=== PATIENT | male | born 1935 | race Caucasian/White ===

== ENCOUNTER 2025-02-20 16:04 | Inpatient (IN) | payer MEDICARE, SELFPAY ==
[2025-02-20] VITALS (13 sets, daily range): BP systolic 90–173; BP diastolic 72–124
--- NOTE | 2025-02-20 15:57 | ITS.CL.PACE ---
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
Pacemaker Implant
Procedure Report:
PACEMAKER IMPLANT REPORT
Primary Care Physician: Dr. Nathan Devi
Primary Pharmaceutical Sales: Dr. Benedicto Peck
Date of Procedure: February 20, 2025
Procedure:
1: Dual chamber pacemaker implantation with fluoroscopic guidance
Indication/Diagnosis:
1: Non-reversible symptomatic bradycardia due to: third degree AV block.
History: The patient is an 89-year-old man who presented to the ER with fatigue and was found in third-degree AV block with a heart rate in the low 30s. He is referred for urgent pacemaker placement. Echocardiography performed in the ER showed
preserved LV systolic function with no major valvular heart disease.
Antibiotic: Ancef 2 g IV
Sedation: Conscious sedation as per anesthesia staff
Description of Procedure: After informed consent was obtained, 'time out' was called and confirmed, the patient was prepped and draped in a sterile fashion. Lidocaine with epinephrine was used for local anesthesia. Central venous access was
obtained via subclavian venopuncture after a venogram from the left arm confirmed subclavian patency. An incision was made along the left chest and a pre-pectoral pocket was formed. Using a Seldinger technique and peel-away sheaths, the pacing
leads were placed under fluoroscopic guidance. Once testing (see below) showed adequate and stable function, the leads were secured using the suture sleeves. The pocket was liberally irrigated with antibiotic solution. The leads were connected to
the generator header and the leads and generator were placed within the pocket. Fluoroscopy confirmed stable lead position. The pocket was closed in the typical fashion.
IMPLANTS:
Company: [employer] [id number], SN: [id number] left Pectoral
RA: [employer] LPA 1231/46, SN: [id number], RAA
RV: [employer] LPA 1231/52, SN: [id number], RV apical septum
DEVICE TESTING:
Sensing: RA 1.8 mV, RV [PACED] mV
Capture: RA 0.5 V@0.4ms, RV 0.75 V@0.4ms
Ohms: RA 510, RV 600
FINAL PROGRAMMING
Jordan Pacing: DDDR 60-120ppm
Complications: None.
Fluoroscopy Time (min): 6.2
Radiation Dose (mGy): 13.1
DAP (Gy.cm2): 1.7
CONCLUSIONS:
1: Successful implant of dual chamber permanent pacemaker
RECOMMENDATIONS:
1. Routine post-op care (tele, CXR, arm sling).
2. In-Office wound check within 7 days.
3. Office interrogation within 4 weeks.
Copy to: Dr. Nathan Devi
[2025-02-20] MEDS: IMODIUM 2 MG PO (20:23)
[2025-02-20] MEDS: AMBIEN 10 MG PO (21:50)
[2025-02-20] MEDS: ANCEF 5 IV (23:05)
--- NOTE | 2025-02-20 23:28 | PTCARENOTE ---
Pt showered self with CHG after clip done. Bilat groins noted with MASD. PA assessed pt and desenex powder applied to groins for tonight.
[2025-02-21 00:02] VITALS: BP 157/98
[2025-02-21 03:28] VITALS: BP 167/97
[2025-02-21 03:46] LABS: Hematocrit 31.6 % (39.0-52.0); Hemoglobin 11.3 g/dL (13.0-18.0); Mean Corp Hgb Conc. 35.8 g/dL (33.0-37.0); Mean Corpuscular Hgb 33.2 pg (27.0-31.0); Mean Corpuscular Volume 92.9 fL (80.0-94.0); Mean Platelet Volume 8.9 fL (7.4-10.4); Platelet Count 150 10^3/uL (130-400); Red Cell Dist. Width 11.9 % (11.5-14.5); White Blood Cell Count 8.8 10^3/uL (4.8-10.8)
[2025-02-21 04:12] LABS: Blood Urea Nitrogen 25 mg/dl (9-20); Calcium 9.4 mg/dl (8.4-10.2); Carbon Dioxide 21 mmol/L (22-30); Chloride 99 mmol/L (98-107); Estimated Creatinine Clearance 45 ml/min; Glucose 90 mg/dl (70-99); Potassium 4.1 mmol/L (3.5-5.1); Sodium 126 mmol/L (135-145); eGFR > 60.00
[2025-02-21] MEDS: SYNTHROID 150 MCG PO (04:36)
[2025-02-21 07:03] VITALS: BP 160/88
--- NOTE | 2025-02-21 08:30 | W.PN.CARDCBS ---
Addendum entered and electronically signed by Norman Li MD 02/21/25 10:30:
Patient seen and examined
Agree with SENIOR PRODUCT MANAGER note and assessment
Agree with SENIOR PRODUCT MANAGER plan
Examination:
Has difficulty with word finding
Oriented x 3 otherwise
Nonfocal neurologically
JVP 6
Cor regular
Appropriate atrial sensing, appropriate atrial pacing, appropriate ventricular pacing and sensing on telemetry
Chest x-ray reviewed with stable leads in the right atrial appendage and RV apex.
89 y/o, PMH of hypothyroid and BPH, presented to [facility] ER w/3 day history of progressive generalized weakness and lightheadedness, as well as difficulty with word finding. Initial EKG with 2nd deg HB w/3:1 AV conduction and RBBB. Neuro was consulted,
and CT head normal however CTA of head/neck with chronic fixed cerebral stenosis in R anterior MCA d/t severe prox M2 segment stenosis and atherosclerotic changes in bilat prox cervical ICAs. Transferred for PPM implant.
IMPRESSION:
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
RBBB
s/p DC PPM implant, 02/20/25
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
Mental status changes/confusion
TIA with expressive aphasia, improved
Hypothyroidism
BPH
GERD
Anemia
Acute on Chronic CKD3a, improved
Chronic Hyponatremia
PLAN:
S/P PPM implant
device site stable
CXR w/stable lead position, no pneumothorax
oob ambulating
limb restrictions reviewed w/pt- nurse to review with family when they arrive
wound check 3 days at [facility] and follow with Dr. Peck thereafter
home today
Chronic fixed intracerebral stenosis
likely TIA d/t hypoperfusion w/mental status changes, expressive aphasia
pt with some memory loss (did not remember that he moved up here a few months ago)
but language is clear, intermittent confusion, moving all extremities, oob ambulating
CT/CTA results noted
will start aspirin 81mg daily and follow with neuro at [facility]
Acute on Chronic CKD3a
creat/gfr 1.37/50 at [facility], now improved, 1.1/>60
likely d/t hypoperfusion
will monitor as outpt
Original Note:
Today's Communication / Plan
-
wound check next Monday at [facility]
limb restrictions reviewed
home today
Impression / Plan
-
PCP: Nathan Devi MD
CDY: Daniele Peck MD (new to [facility])
89 y/o, PMH of hypothyroid and BPH, presented to [facility] ER w/3 day history of progressive generalized weakness and lightheadedness, as well as difficulty with word finding. Initial EKG with 2nd deg HB w/3:1 AV conduction and RBBB. Neuro was consulted,
and CT head normal however CTA of head/neck with chronic fixed cerebral stenosis in R anterior MCA d/t severe prox M2 segment stenosis and atherosclerotic changes in bilat prox cervical ICAs. Transferred for PPM implant.
IMPRESSION:
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
RBBB
s/p DC PPM implant, 02/20/25
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
Mental status changes/confusion
TIA with expressive aphasia, improved
Hypothyroidism
BPH
GERD
Anemia
Acute on Chronic CKD3a, improved
Chronic Hyponatremia
PLAN:
S/P PPM implant
device site stable
CXR w/stable lead position, no pneumothorax
oob ambulating
limb restrictions reviewed w/pt- nurse to review with family when they arrive
wound check 3 days at [facility] and follow with Dr. Peck thereafter
home today
Chronic fixed intracerebral stenosis
likely TIA d/t hypoperfusion w/mental status changes, expressive aphasia
pt with some memory loss (did not remember that he moved up here a few months ago)
but language is clear, intermittent confusion, moving all extremities, oob ambulating
CT/CTA results noted
will start aspirin 81mg daily and follow with neuro at [facility]
Acute on Chronic CKD3a
creat/gfr 1.37/50 at [facility], now improved, 1.1/>60
likely d/t hypoperfusion
will monitor as outpt
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
Subjective
Date of Service: February 21, 2025
Denies cp/palps/dyspnea/lightheadedness
some confusion but responds to questions appropriately
oob in chair
device site without pain
Objective
Labs:
02/21/25 03:19
02/21/25 03:19
Labs
Hgb 11.3 g/dL (13.0-18.0) L 02/21/25 03:19
Hct 31.6 % (39.0-52.0) L 02/21/25 03:19
Plt Count 150 10^3/uL (130-400) 02/21/25 03:19
Sodium 126 mmol/L (135-145) L 02/21/25 03:19
Potassium 4.1 mmol/L (3.5-5.1) 02/21/25 03:19
BUN 25 mg/dl (9-20) H 02/21/25 03:19
Creatinine 1.1 mg/dL (0.7-1.3) 02/21/25 03:19
Glucose 90 mg/dl (70-99) 02/21/25 03:19
Vital Signs and I&O:
Vital Signs
Temp Pulse Resp BP Pulse Ox
98.2 F 81 18 160/88 95
02/21/25 07:05 02/21/25 08:00 02/21/25 07:05 02/21/25 07:03 02/21/25 07:05
Vital Signs
Temp Pulse Resp BP Pulse Ox
98.2 F 81 18 160/88 95
02/21/25 07:05 02/21/25 08:00 02/21/25 07:05 02/21/25 07:03 02/21/25 07:05
Physical Exam
Physical Exam
AAOx3, MAEE 5/5
RRR S1 S2 no murmurs
CTA bilat, non labored
left ACW w/steri strips intact, no ht/bleeding, non tender
soft abd + bs
bilat extremities w/palpable distal pulses, no edema
[2025-02-21] MEDS: ANCEF 5 IV (08:46)
[2025-02-21] MEDS: MYRBETRIQ EXTENDED RELEASE 50 MG PO (08:47)
[2025-02-21] MEDS: FLOMAX 0.4 MG PO (08:47)
[2025-02-21] MEDS: PROTONIX 40 MG PO (08:47)
[2025-02-21] MEDS: LOW STRENGTH ASPIRIN 81 MG PO (08:47)
[2025-02-21] MEDS: PROSCAR 5 MG PO (08:47)
--- NOTE | 2025-02-21 08:47 | W.DS.TRANS ---
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
-
Discharge Instructions:
Discharge Diagnosis/Procedures Pacemaker implant
Diet Low Cholesterol
Activity No strenuous activity
Driving Restrictions No driving for 1 week
Instructions:
Stand-Alone Forms: DC Inst - Implanted Device
Changes to Home Medications: Yes
Discharge Medications:
DC Medications w/original date entered in [facility]
alfuzosin 10 mg tablet,extended release 24 hr 10 mg PO DAILY 02/20/25
eszopiclone 2 mg tablet 2 mg PO HS 02/20/25
finasteride 5 mg tablet 5 mg PO DAILY 02/20/25
levothyroxine 150 mcg tablet 150 mcg PO DAILY 02/20/25
loperamide 2 mg tablet 2 mg PO Q6H PRN diarrhea 02/20/25
mirabegron 50 mg tablet,extended release 24 hr 50 mg PO HS 02/20/25
pantoprazole 40 mg tablet,delayed release 40 mg PO DAILY 02/20/25
tadalafil 5 mg tablet 5 mg PO DAILY 02/20/25
aspirin 81 mg chewable tablet 81 mg PO DAILY #1 tab 02/21/25
Home Medication Changes
New start: daily aspirin
Pending Results: No
--- NOTE | 2025-02-21 13:43 | CM ---
Chart reviewed. Patient is independent of ADLS, lives in a apartment in a senior living community with his , 3rd floor elevator access, ambulates with a rollator. Plan is for the patient to return home.
== END 2025-02-21 12:00 | disposition home or self-care (01) | DRG 243 ==
LOC: IVU 16:04
PROVIDERS: ADMITTING PHYSICIAN Internal Medicine Interventional Cardiology; FAMILY PHYSICIAN Family Medicine
PROC: 0JH606Z Insertion of Pacemaker, Dual Chamber into Chest Subcutaneous Tissue and Fascia, Open Approach (ICD-10-PCS; 2025-02-20)
PROC: 02H63JZ Insertion of Pacemaker Lead into Right Atrium, Percutaneous Approach (ICD-10-PCS; 2025-02-20)
PROC: 02HK3JZ Insertion of Pacemaker Lead into Right Ventricle, Percutaneous Approach (ICD-10-PCS; 2025-02-20)
DX: I44.2 Atrioventricular block, complete (principal); E87.1 Hypo-osmolality and hyponatremia; N18.31 Chronic kidney disease, stage 3a
CPT/HCPCS: 33208; 71045; 80048; 85027; 93005; C1785; C1892; C1898; Q9967